=== PATIENT | female | born 1985 | race Caucasian/White ===

== ENCOUNTER → 2018-06-13 | Outpatient (CLI) | payer OTHER ==
[2014-09-23 13:40] VITALS: BP 126/76
[~2018-06-13] MED LIST: MEDR150D3 IM; PRED20TA PO
--- NOTE | 2018-06-13 15:07 | KCIC ---
THYROID ULTRASOUND History: Hoarseness of voice, swelling of the thyroid gland, cervical lymphadenopathy Comparison: None. Findings: Multiple sonographic images of the thyroid gland are submitted. Right lobe measured 4.9 x 1.5 x 2.3 cm. Left lobe measured 4.6 x 1.5 x 1.9 cm. Isthmus measured 0.2 cm in thickness. Thyroid parenchyma is homogeneous bilaterally without asymmetric hypervascularity or nodularity demonstrated. There are lymph nodes of the bilateral neck. Left submandibular node measures about 1.2 x 1 x 0.5 cm. Right submandibular node measures about 1.2 x 1.1 x 0.5 cm. There is another node of the left neck up to 2 x 0.6 x 1.4 cm. Impression: 1. There are nonspecific nodes of the bilateral neck although not considered significantly enlarged based on short axis dimensions. No abnormality is demonstrated of the thyroid gland. Electronically signed by: Carl Vale MD (06/13/2018 3:04 PM) [id number]
== END | disposition home or self-care (01) ==
LOC: KCIC US 14:14
PROVIDERS: ATTEND Physician Assistant Medical
DX: R59.0 Localized enlarged lymph nodes (principal); I48.91 Unspecified atrial fibrillation
CPT/HCPCS: 76536

== ENCOUNTER → 2018-09-06 | Outpatient (CLI) | payer OTHER ==
[2014-09-23 13:40] VITALS: BP 126/76
--- NOTE | 2018-09-06 15:13 | KCIC ---
Examination: CT of the abdomen pelvis without contrast HISTORY: History of microscopic hematuria, left flank pain, epigastric pain COMPARISON: 06/15/2015 TECHNIQUE: Axial CT images of the abdomen pelvis were performed without contrast. Coronal and sagittal reformats are performed Exposure: One or more of the following individualized dose reduction techniques were utilized for this examination: 1. Automated exposure control 2. Adjustment of the mA and/or kV according to patient size 3. Use of iterative reconstruction technique FINDINGS: The bibasilar lungs are clear. No evidence of free air identified in the abdomen. The visualized noncontrasted liver, adrenals, pancreas grossly appears unremarkable. Calcified granulomas identified in the spleen. The stomach is mildly distended with fluid. The small bowel is nondilated. The partially visualized appendix grossly appears unremarkable. Feces and gas noted in the colon. Urinary bladder is mildly distended. No evidence of intrarenal collecting system calculi or hydronephrosis. Cystic structure identified in the right adnexa measuring 2.8 cm. No evidence of lytic bony destructive lesion. IMPRESSION: 1. No evidence of intrarenal collecting system calculi or hydronephrosis. Electronically signed by: Miguel Birmingham MD (09/06/2018 3:09 PM) [place] [id number]
== END | disposition home or self-care (01) ==
LOC: KCIC CT 13:38
PROVIDERS: ATTEND Physician Assistant Medical
DX: D73.89 Other diseases of spleen (principal); N32.89 Other specified disorders of bladder; Z87.891 Personal history of nicotine dependence
CPT/HCPCS: 74176